=== PATIENT | female | born 1940 | race Caucasian/White ===

== ENCOUNTER → 2017-06-03 | Outpatient (CLI) | payer MEDICARE, OTHER ==
--- NOTE | 2017-06-03 17:23 | RADIOLOGY REPORT (SQ) ---
EXAM DESCRIPTION: MRI RT UPPER JOINT WITHOUT COMPLETED DATE/TIME: 06/03/2017 12:54 pm REASON FOR STUDY: R SHOULDER PAIN M25.511 PAIN IN RIGHT SHOULDER COMPARISON: None. TECHNIQUE: Right shoulder images acquired and stored on PACS. Multiplanar imaging to include fat sen sitive sequences such as T1, water sensitive sequences such as FST2/STIR, cartilage sensitive sequenc es such as FSPD/gradient-echo sequences. LIMITATIONS: None. FINDINGS: BONE MARROW AND CORTEX: No worrisome bone lesions or marrow replacement. No occult fractur es. JOINT OR BURSAL EFFUSION: Small subacromial/ subdeltoid effusion. GLENO-HUMERAL ARTICULATION: Normal articulation. No subluxation. No cystic change. No osteophytes or cartilage loss. ACROMION AND AC JOINT: Type 2 acromion. Hypertrophic changes of the AC joint without edema. ROTATOR CUFF AND INTERVAL: There is diffuse tendinopathy of the distal supraspinatus with thickening and irregular interstitial signal. There is a peripheral large bursal surface partial tear. No full -thickness tear. Tendinopathy of the superior infraspinatus. The subscapularis is intact. No rotator interval tear. No rotator interval thickening to suggest adhesive capsulitis. LABRUM AND BICEPS LABRAL COMPLEX: Intact. No labral tear. Intra-articular long-head biceps tendon n ormal. Distal biceps in normal location in bicipital groove. REMAINDER OF LABRUM AND IGHL : No gross tear or paralabral cyst formation. Labral evaluation is less than optimal without joint distention. No thickening of IGHL to suggest adhesive capsulitis. PERIARTICULAR AND ADJACENT SOFT TISSUES: No masses or abnormal nodes. OTHER: No other significant finding. IMPRESSION: Diffuse tendinopathy of the supraspinatus with thickening and irregular signal. Periphe ral large bursal surface partial tear. No full-thickness tear. Tendinopathy of the superior infrasp inatus. No definite labral tear. TECHNICAL DOCUMENTATION: JOB ID: [id number]- All Rights Reserved Reading location - IP/workstation name: [email or web address]
== END ==
LOC: RAD 12:02
PROVIDERS: ATTEND Orthopaedic Surgery Sports Medicine
DX: M25.511 Pain in right shoulder (principal); M75.81 Other shoulder lesions, right shoulder

== ENCOUNTER → 2017-07-13 | Outpatient (CLI) | payer MEDICARE, OTHER ==
--- NOTE | 2017-07-13 16:51 | RADIOLOGY REPORT (SQ) ---
EXAM DESCRIPTION: MRI HEAD COMBO COMPLETED DATE/TIME: 07/13/2017 2:26 pm REASON FOR STUDY: TINNITUS, BILATERAL H93.13 TINNITUS, BILATERAL COMPARISON: None. TECHNIQUE: Multiplanar imaging includes non-contrasted T1, T2, FLAIR, diffusion with ADC map and pos t gadolinium contrast sequences. Additional thin slice images with and without gadolinium contrast a cquired in the posterior fossa. Images stored on PACS. CONTRAST TYPE AND DOSE: 20 mL Prohance. RENAL FUNCTION: GFR 49 LIMITATIONS: None. FINDINGS: ANATOMY: No anomalies. Normal vascular flow voids. Pituitary fossa normal. CSF SPACES: Normal in size and contour. CEREBRUM: Sulci and gyri normal in size and contour. Minimal high signal on FLAIR imaging in the whi te matter compatible with mild small vessel ischemic change. . No hemorrhage. No edema, masses or m ass effect. No enhancing lesions. POSTERIOR FOSSA: No signal alteration. No hemorrhage. No edema, masses or mass effect. Internal nabil tory canals, cerebello-pontine angles, mastoids normal. No enhancing lesions. Detailed imaging of the 5th, 7th, and 8th nerves and [place] within normal limits. DIFFUSION IMAGING: Negative for acute or sub-acute infarction. ORBITS: No masses. Globes normal. PARANASAL SINUSES: No fluid levels. Mucosa normal. OTHER: No other significant finding. IMPRESSION: No significant finding in the posterior fossa IAC's. Mild microvascular ischemic changes. TECHNICAL DOCUMENTATION: JOB ID: [id number] [employer]- All Rights Reserved Reading location - IP/workstation name: [email or web address]
== END ==
LOC: RAD 13:10
PROVIDERS: ATTEND Otolaryngology
DX: H93.13 Tinnitus, bilateral (principal)
CPT/HCPCS: 82565; 70553; A9577

== ENCOUNTER 2019-02-20 14:13 | Emergency (ER) | payer MEDICARE, OTHER ==
--- NOTE | 2019-02-20 14:25 | ER Document Report ---
ED Medical Screen (RME) - General Chief Complaint: S/S of Possible Stroke Stated Complaint: POSSIBLE STROKE Time Seen by Provider: 02/20/19 14:23 Primary Care Provider: VALERIE CERON DO [Primary Care Provider] - Follow up as needed Notes: 78-year-old female with hypertension, hyperlipidemia, lxh-tkftvav-xotmfninz diabetes mellitus presents for possible stroke alert. Last known normal 10 AM. When got home from [facility] at noon patient had a confused look on her face was slurring her speech had a right-sided facial droop and was drooling out of the right side of her mouth. Patient still has a very residual right-sided facial droop with no pronator drift and is speaking in full sentences but does not remember what happened. Exam: Nontoxic appearing in no acute distress, mild right-sided facial droop, no rmal speech, no pronator drift I have greeted and performed a rapid initial assessment of this patient. A comprehensive ED assessment and evaluation of the patient, analysis of test results and completion of medical decision making process will be conducted by an additional ED providers. TRAVEL OUTSIDE OF THE [place] IN LAST 30 DAYS: No - Related Data Allergies/Adverse Reactions: meperidine [From Demerol] Adverse Reaction (Intermediate, Verified 10/30/15 08:08) N/V propoxyphene [From Darvocet-N] Adverse Reaction (Intermediate, Verified 10/30/15 08:08) N/V Past Medical History - Past Medical History Cardiac Medical History: Reports: Hx Hypertension - MEDICATED Denies: Hx Heart Attack Pulmonary Medical History: Denies: Hx Asthma Neurological Medical History: Denies: Hx Cerebrovascular Accident, Hx Seizures GI Medical History: Denies: Hx Hepatitis, Hx Hiatal Hernia, Hx Ulcer Infectious Medical History: Denies: Hx Hepatitis Past Surgical History: Denies: Hx Mastectomy, Hx Open Heart Surgery, Hx Pacemaker Doctor's Discharge - Discharge Referrals: VALERIE CERON DO [Primary Care Provider] - Follow up as needed
--- NOTE | 2019-02-20 14:40 | RADIOLOGY REPORT (SQ) ---
EXAM DESCRIPTION: CT HEAD WITHOUT COMPLETED DATE/TIME: 02/20/2019 2:29 pm REASON FOR STUDY: Stroke Alert COMPARISON: None. TECHNIQUE: Axial images acquired through the brain without intravenous contrast. Images reviewed wi th bone, brain and subdural windows. Additional sagittal and coronal reconstructions were generated. Images stored on PACS. All CT scanners at this facility use dose modulation, iterative reconstruction, and/or weight based d osing when appropriate to reduce radiation dose to as low as reasonably achievable (ALARA). [facility]: Dose Right [facility]: CareDose [facility]: Dose Right [facility]: Teradose 4D [facility]: Smart Bujbu RADIATION DOSE: CT Rad equipment meets quality standard of care and radiation dose reduction techniq ues were employed. CTDIvol: 53.2 mGy. DLP: 991 mGy-cm. mGy. LIMITATIONS: None. FINDINGS: VENTRICLES: Normal size and contour. CEREBRUM: No masses. No hemorrhage. No midline shift. No evidence for acute infarction. Normal gra y/white matter differentiation. No areas of low density in the white matter. CEREBELLUM: No masses. No hemorrhage. No alteration of density. No evidence for acute infarction. EXTRAAXIAL SPACES: No fluid collections. No masses. ORBITS AND GLOBE: No intra- or extraconal masses. Normal contour of globe without masses. CALVARIUM: No fracture. PARANASAL SINUSES: No fluid or mucosal thickening. SOFT TISSUES: No mass or hematoma. OTHER: No other significant finding. IMPRESSION: NORMAL BRAIN CT WITHOUT CONTRAST. EVIDENCE OF ACUTE STROKE: NO. COMMENT: Pertinent positive or negative findings of the imaging study reported as a CRITICAL EXAM shane MCPHERSON PA-C at14:32 on 02/20/2019. Category of Critical Exam: Stroke alert Quality ID # [id number]: Final reports with documentation of one or more dose reduction techniques (e.g., Au tomated exposure control, adjustment of the mA and/or kV according to patient size, use of iterative reconstruction technique) TECHNICAL DOCUMENTATION: JOB ID: [id number] [employer]- All Rights Reserved Reading location - IP/workstation name: [email or web address]
--- NOTE | 2019-02-20 14:40 | RADIOLOGY REPORT (SQ) ---
EXAM DESCRIPTION: CHEST SINGLE VIEW COMPLETED DATE/TIME: 02/20/2019 2:33 pm REASON FOR STUDY: Stroke Alert COMPARISON: None. EXAM PARAMETERS: NUMBER OF VIEWS: One view. TECHNIQUE: Single frontal radiographic view of the chest acquired. RADIATION DOSE: NA LIMITATIONS: None. FINDINGS: LUNGS AND PLEURA: No opacities, masses or pneumothorax. No pleural effusion. MEDIASTINUM AND HILAR STRUCTURES: No masses. Contour normal. HEART AND VASCULAR STRUCTURES: Heart normal in size. Normal vasculature. BONES: No acute findings. HARDWARE: None in the chest. OTHER: No other significant finding. IMPRESSION: NO ACUTE RADIOGRAPHIC FINDING IN THE CHEST. TECHNICAL DOCUMENTATION: JOB ID: [id number] [employer]- All Rights Reserved Reading location - IP/workstation name: [email or web address]
[2019-02-20 14:58] LABS: ABSOLUTE BASOPHILS # (AUTO) 0.1 10^3/uL (0.0-0.2); ABSOLUTE EOSINOPHILS # (AUTO) 0.2 10^3/uL (0.0-0.6); ABSOLUTE LYMPHOCYTES (AUTO) 1.9 10^3/uL (0.5-4.7); ABSOLUTE MONOCYTES (AUTO) 0.6 10^3/uL (0.1-1.4); ABSOLUTE NEUT (AUTO) 3.6 10^3/uL (1.7-8.2); BASOPHILS % (AUTO) 1.2 % (0-2); EOSINOPHILS % (AUTO) 3.5 % (0-6); HEMATOCRIT 35.7 % (36.0-47.0); HEMOGLOBIN 12.4 g/dL (12.0-15.5); LYMPHOCYTES % (AUTO) 30.4 % (13-45); MEAN CORPUSCULAR HEMOGLOBIN 33.9 pg (27.0-33.4); MEAN CORPUSCULAR HGB CONC 34.8 g/dL (32.0-36.0); MEAN CORPUSCULAR VOLUME 97 fl (80-97); MONOCYTES % (AUTO) 9.3 % (3-13); PLATELET COUNT 247 10^3/uL (150-450); RED BLOOD COUNT 3.66 10^6/uL (3.72-5.28); RED CELL DISTRIBUTION WIDTH 14.4 % (11.5-14.0); SEGMENTED NEUTROPHILS % (AUTO) 55.6 % (42-78); TOTAL CELLS COUNTED % (AUTO) 100 %; WHITE BLOOD COUNT 6.4 10^3/uL (4.0-10.5)
[2019-02-20 15:01] LABS: INTERNATIONAL RATION (INR) 0.99; PROTHROMBIN TIME 13.1 SEC (11.4-15.4)
[2019-02-20 15:02] LABS: PARTIAL THROMBOPLASTIN TIME 31.6 SEC (23.5-35.8)
[2019-02-20 15:16] LABS: ALBUMIN 3.8 g/dL (3.5-5.0); ALKALINE PHOSPHATASE 92 U/L (38-126); ANION GAP 8 (5-19); ASPARTATE AMINO TRANSFERASE 21 U/L (14-36); BILIRUBIN,DIRECT 0.1 mg/dL (0.0-0.4); BILIRUBIN,TOTAL 0.3 mg/dL (0.2-1.3); BLOOD UREA NITROGEN 18 mg/dL (7-20); CALCIUM 9.8 mg/dL (8.4-10.2); CARBON DIOXIDE 29 mmol/L (22-30); CHLORIDE 106 mmol/L (98-107); CREATINE KINASE 49 U/L (30-135); GLUCOSE 169 mg/dL (75-110); POTASSIUM 4.1 mmol/L (3.6-5.0)
[2019-02-20 15:25] LABS: CREATINE KINASE MB 0.46 ng/mL (<4.55)
[2019-02-20 15:32] LABS: TROPONIN I < 0.012 ng/mL
[2019-02-20] MEDS ORDERED: LORAZEPAM INJ 2 MG/1 ML VIAL IV ONE (16:21)
--- NOTE | 2019-02-20 16:33 | ER Document Report ---
ED General - General Chief Complaint: S/S of Possible Stroke Stated Complaint: POSSIBLE STROKE Time Seen by Provider: 02/20/19 14:23 Primary Care Provider: VALERIE CERON DO [ASSOCIATE] - Follow up as needed TRAVEL OUTSIDE OF THE [place] IN LAST 30 DAYS: No - HPI Notes: 78F history of chronic migraines diabetes obesity, hypertension, who was last known normal at 10 AM then when returned she was still in the same chair sitting down but had some drooling and one side of her face was drooping she was slurring her speech slightly she is making good out of intact he did not notice any arm weakness or her not moving both arms. He denies any period of seizure type activity or loss of consciousness. Then they did walk and he allowed her to walk very unsteadily he said to the car at the when she got to the car she did slump down and after a fall she said losing her balance they needed the neighbor to come help assist her up. She has baseline bilateral intentional tremors both she and he feel are at baseline. Denies any recent chest pain or passing out or shortness of breath or illnesses. - Related Data Allergies/Adverse Reactions: meperidine [From Demerol] Adverse Reaction (Intermediate, Verified 02/20/19 15:18) N/V propoxyphene [From Darvocet-N] Adverse Reaction (Intermediate, Verified 02/20/19 15:18) N/V Past Medical History - General Information source: Patient, Relative - , Emergency Med Personnel, [facility] Records - Social History Smoking Status: Never Smoker Family History: Reviewed & Not Pertinent Patient has suicidal ideation: No Patient has homicidal ideation: No - Past Medical History Cardiac Medical History: Reports: Hx Hypertension - MEDICATED Denies: Hx Heart Attack Pulmonary Medical History: Denies: Hx Asthma Neurological Medical History: Reports: Hx Migraine. Denies: Hx Cerebrovascular Accident, Hx Seizures Endocrine Medical History: Reports: Hx Diabetes Mellitus Type 2 GI Medical History: Denies: Hx Hepatitis, Hx Hiatal Hernia, Hx Ulcer Infectious Medical History: Denies: Hx Hepatitis Past Surgical History: Reports: Hx Cholecystectomy, Hx Hysterectomy, Hx Orthopedic Surgery - right knee replacement, back surgery. Denies: Hx Mastectomy, Hx Open Heart Surgery, Hx Pacemaker Review of Systems - Review of Systems Constitutional: No symptoms reported EENT: No symptoms reported Cardiovascular: No symptoms reported Respiratory: No symptoms reported Gastrointestinal: No symptoms reported Genitourinary: No symptoms reported Female Genitourinary: No symptoms reported Musculoskeletal: No symptoms reported Skin: No symptoms reported Hematologic/Lymphatic: No symptoms reported Neurological/Psychological: See HPI, Weakness, Gait changes, Speech impairment, Tremor - Bilateral upper extremity intention tremor. denies: Confusion, Hallucinations, Sensory change, Seizure, Lost consciousness, Headaches, Numbness, Tingling Physical Exam - Vital signs Vitals: Pulse Resp BP Pulse Ox 70 20 150/68 H 94 02/20/19 14:32 02/20/19 14:32 02/20/19 14:32 02/20/19 14:32 Course - Re-evaluation Re-evalutation: CT head negative, on initial presentation it is been reported that her NIH was 2 at my assessment her NIH was 0 after some time nurse alerted me patient has return of slurring of speech and her obvious facial droop is returned. I asses sed patient her NIH is 2 for those 2 deficits alone. Given this return of her deficits after some period of resolution went ahead and ordered MRI MRA. CTA would have probably been the better assessment and our facility just to ensure that there was no large vessel occlusion. Still on the MRA at least could tell that there was no proximal branches of the left MCA that were completely occluded in the even lacunar distribution branches showed some blood flow restriction but no complete occlusion. MRI of the neck was within normal limits. Spoke with neuro attending at [facility] who was able to review the MRI MRA and saw himself that there was some restriction of blood flow in the more distal distributions of the left MCA that would not be any candidate for intervention he said it was still appropriate to have her see the stroke or be seen sent to the stroke center given her improvement and then return of her deficits to continue to monitor. Gave high-dose statin 80 atorvastatin, full dose of aspirin while at our ED. Blood pressure remained within normal limits. EKG on presentation was reviewed it was normal sinus rhythm no prior for comparison. All intervals are within normal limits axis within normal limit voltage within normal limit. 02/21/19 01:30 Reevaluated the patient few minutes prior to transport arrived. Currently NIH is now back to 0 blood pressures 130s over 50s, heart rate 60s in no acute distress on room air no work of breathing. She is alert and comfortable. - Vital Signs Vital signs: Temp Pulse Resp BP Pulse Ox 98.6 F 68 18 135/57 H 95 02/20/19 22:04 02/21/19 01:23 02/21/19 01:23 02/21/19 01:23 02/21/19 01:23 - Laboratory Result Diagrams: 02/20/19 14:48 02/20/19 14:48 Laboratory results interpreted by me: 02/20/19 02/20/19 14:48 14:48 RBC 3.66 L Hct 35.7 L MCH 33.9 H RDW 14.4 H Glucose 169 H - Diagnostic Test Radiology reviewed: Image reviewed, Reports reviewed - EKG Interpretation by Me Additional EKG results interpreted by me: 02/20/19 16:29 EKG sinus rate 69, IN 220 consistent with first-degree AV block, QTC within normal limits no ST elevations or depressions are otherwise no evidence of isch emic changes but there is no prior EKG for comparison. Voltage within normal limits and axis within normal limits. - Transfer of Care Notes: 02/20/19 16:30 Initially first provider for saw patient before she went to CT scan said she had very mild facial droop only and a little bit of slurring of the speech some NIH of 2. On arrival to the room I performed a full NIH which was 0. Did ambulate the patient and she did have a slightly wide-based gait tending to fall to her right had most difficulty trying to turn and walk back towards me she almost fell doing this needed assistance negative Romberg. Her kudf-kj-yyec bilaterally was intact and her zkqgpe-qf-kueo bilaterally consistent with intentional tremor that both and she report is at baseline. Therefore difficult to get a good assessment of the upper extremity cerebellum functions. Though both upper extremities do appear symmetric. After sometime in the emergency department and a negative CT scan without contrast she had recurrence of the dysarthria and the facial droop returned an NIH was repeated and again she scored a 2 for those things no pronator drift still. 02/20/19 16:33 Sent for MRA.MRI of head and neck. Blood pressures are permissible 150s/100. In the first part of ED course and at time of arrival has been in no acute distress. Discharge - Discharge Clinical Impression: Acute ischemic left MCA stroke Condition: Fair Disposition: [facility] Unit Admitted: Medical Floor Referrals: VALERIE CERON DO [ASSOCIATE] - Follow up as needed
--- NOTE | 2019-02-20 17:11 | EKG REPORT ---
SEVERITY:- ABNORMAL ECG - SINUS RHYTHM FIRST DEGREE AV BLOCK : Confirmed by: Brit Pan 20-Feb-2019 17:11:01
--- NOTE | 2019-02-20 18:13 | RADIOLOGY REPORT (SQ) ---
EXAM DESCRIPTION: MRI HEAD WITHOUT COMPLETED DATE/TIME: 02/20/2019 5:50 pm REASON FOR STUDY: facial droop dysarthria falling to right COMPARISON: None. TECHNIQUE: Multiplanar imaging includes non-contrasted T1, T2, FLAIR, and Diffusion with ADC map seq uences. Images stored on PACS. LIMITATIONS: None. FINDINGS: ANATOMY: No anomalies. Normal vascular flow voids. Pituitary fossa normal. CSF SPACES: Normal in size and contour. No hemorrhage. CEREBRUM: A few high-signal intensity lesions scattered throughout the white matter on FLAIR imaging with distribution suggesting chronic micro-vascular ischemic change. Sulci and gyri normal in size a nd contour. No evidence of hemorrhage, mass or extraaxial fluid collection. POSTERIOR FOSSA: No signal alteration. No hemorrhage. No edema, masses or mass effect. Internal nabil tory canals, cerebello-pontine angles, mastoids normal. DIFFUSION: Positive for restricted diffusion in some small 2- 3 mm foci in the cortical-subcortical l eft temporal lobe posterior insular region consistent with acute or sub-acute lacunar infarction. ORBITS: No masses. Globes normal. PARANASAL SINUSES: No fluid levels. Mucosa normal. OTHER: No other significant finding. IMPRESSION: Positive for restricted diffusion in some small 2- 3 mm foci in the cortical-subcortical left temporal lobe posterior insular region consistent with acute or sub-acute lacunar infarction. EVIDENCE OF ACUTE STROKE: YES. LEFT MCA. COMMENT: The findings were sent to the Radiology Results Communication Center at 18:07 on 9 to be communicated to a licensed caregiver. TECHNICAL DOCUMENTATION: JOB ID: [id number]-72 2010 [employer]- All Rights Reserved Reading location - IP/workstation name: [email or web address]
--- NOTE | 2019-02-20 18:18 | RADIOLOGY REPORT (SQ) ---
EXAM DESCRIPTION: MRA HEAD WITHOUT COMPLETED DATE/TIME: 02/20/2019 5:50 pm REASON FOR STUDY: facial droop dysarthria falling to right COMPARISON: None. TECHNIQUE: Axial 3-D [id number]-by-[id number] acquisition imaging performed through the brain in the area of t he [place]. Images reformatted using 3-D MIPS. LIMITATIONS: None. FINDINGS: SOURCE IMAGES: Diminished flow in the left MCA temporal lobe insular vessels. No large ma sses. 3-D MIP: No aneurysm. No occlusions. No significant stenosis. OTHER: No other significant finding. IMPRESSION: Diminished flow in the left MCA temporal lobe insular vessels. TECHNICAL DOCUMENTATION: JOB ID: [id number] 2010 [employer]- All Rights Reserved Reading location - IP/workstation name: [email or web address]
--- NOTE | 2019-02-20 18:22 | RADIOLOGY REPORT (SQ) ---
EXAM DESCRIPTION: MRA NECK WITHOUT COMPLETED DATE/TIME: 02/20/2019 5:50 pm REASON FOR STUDY: facial droop dysarthria falling to right COMPARISON: None. TECHNIQUE: Axial 2-D volume acquisition imaging through the extracranial carotid and vertebral arter ies with reformatting using 3-D MIPS. LIMITATIONS: None. FINDINGS: RIGHT CAROTID ARTERY: No stenosis or occlusive changes. Limited visualization of the orig in. LEFT CAROTID ARTERY: No stenosis or occlusive changes. Limited visualization of the origin. VERTEBRAL ARTERY: The extracranial portions of the vertebral basilar system are preserved without yosef nosis. No aneurysmal dilatation or dissection is seen. OTHER: No other significant finding. IMPRESSION: NO SIGNIFICANT STENOSIS. COMMENT: Quality ID #[id number]: Measurements of distal internal carotid diameter were used as the denomin ator for stenosis measurement. TECHNICAL DOCUMENTATION: JOB ID: [id number] 2010 [employer]- All Rights Reserved Reading location - IP/workstation name: [email or web address]
[2019-02-20] MEDS ORDERED: ASPIRIN 81 MG TABLET, CHEWABLE PO ONE (22:01)
[2019-02-20] MEDS ORDERED: ATORVASTATIN CALCIUM 80 MG TABLET PO ONE (22:55)
[2019-02-21 01:25] VITALS: BP 135/57
== END 2019-02-21 01:50 | disposition short-term general hospital (02) ==
LOC: ER 14:13
DX: I63.9 Cerebral infarction, unspecified (principal); R29.810 Facial weakness; R47.81 Slurred speech; E66.9 Obesity, unspecified; W19.XXXA Unspecified fall, initial encounter; I10 Essential (primary) hypertension; Z79.899 Other long term (current) drug therapy; E11.9 Type 2 diabetes mellitus without complications
CPT/HCPCS: 93005; 99285; 96374; 36415; 82553; 82550; 85025; 85610; 85730; 80053; 84484; 70551; 70547; 70544; 71045; 70450; 93010; A9270 ×2; J2060